=== PATIENT | female | born 1990 | race Caucasian/White ===

== ENCOUNTER 2018-11-01 16:35 | Emergency (ER) | payer OTHER ==
[2018-11-01 16:40] VITALS: BP 136/96; TEMP 99.3; BMI 33.2
== END 2018-11-01 18:02 | disposition left against medical advice (07) ==
LOC: ED 16:35
DX: J02.9 Acute pharyngitis, unspecified (principal)

== ENCOUNTER 2018-11-02 08:37 | Emergency (ER) ==
[2018-11-02 08:44] VITALS: BP 129/84; TEMP 99.6; BMI 33.0
--- NOTE | 2018-11-02 09:01 | ED.PDOC ---
General ED Provider: Dr. TIRSO MCKAY Chief Complaint: Sore Throat Stated Complaint: CC: Sore throat. HPI: Initial onset with sore throat. Also complains of ears aching along with fever/chills/body aches/vomiting/headache, urinary urgency/frequency and flank pain. In addition C/O previouls strep throat. States was here last evening but left as she felt so poorly and did not feel like waiting as ER was full of patients. In addition has taken tylenol and nyquil --feel/somewhat better today but most of symptoms remain/ Time Seen by Physician: 08:40 Mode of Arrival: Walk-In Information Source: Patient Exam Limitations: No limitations Nursing and Triage Documentation Reviewed and Agree: Yes Does patient meet sepsis criteria?: No System Inflammatory Response Syndrome: Not Applicable Sepsis Protocol: For patient's 13 years and over: Temp is 96.8 and below OR 101 and greater Pulse >90 BPM Resp >20/minute Acutely Altered Mental Status Are patient's symptoms suggestive of a new infection, such as: -Pneumonia -Skin, Soft Tissue -Endocarditis -UTI -Bone, Joint Infection -Implantable Device -Acute Abdominal Infection -Wound Infection -Meningitis -Blood Stream Catheter Infection -Unknown Respiratory Complaint Exam - Respiratory Complaint/Exam Symptoms Are: Still present Timing: Constant Initial Severity: Mild Current Severity: Moderate Location: Throat Character: Denies: Productive cough, Non-productive cough, Dry cough, Bronchospastic cough Aggravating: Denies: None Alleviating: Denies: None Associated Signs and Symptoms: Reports: Hoarseness, Sinus discomfort, Vomiting, Sore throat. Denies: Rapid breathing, Dyspnea, Fever, Chills, Chest pain, Pleuritic chest pain, Wheezing, Hemoptysis, Dizziness, Calf pain, Calf swelling , Edema, URI, Nasal congestion, Weight loss, Decreased oral intake, Increased thirst, Increased appetite, Increased urination Related History: Reports: Similar episode Related Surgical History: Reports: None Pulmonary Embolism Risk Factors: None Cardiac Risk Factors: Reports: None Pseudomonas Risk Factors: Reports: None Tuberculosis Risk Factors: Reports: None Status Asthmaticus Risk Factors: Reports: None Home Oxygen Use: No Recent Stress Test: No Recent Echo/LV Function: No Current Antibiotic Use: No Current Asthma Medication Use: No Respiratory Distress: None Inadequate Respiratory Effort: No Dysphagia Present: No Stridor Present: No JVD Present: No Accessory Muscle Use: No Retractions: Not Present Diminished Breath Sounds: No Sinus Tenderness: None Grunting Respirations: No Kussmaul Respirations: No Differential Diagnoses: URI, Other (strep tonsillitis) Review of Systems - Review Of Systems Constitutional: Reports: No symptoms Eyes: Reports: No symptoms Ears, Nose, Mouth, Throat: Reports: No symptoms, Ear pain, Throat pain, Throat swelling Respiratory: Reports: No symptoms Cardiac: Reports: No symptoms GI: Reports: No symptoms : Reports: No symptoms Musculoskeletal: Reports: No symptoms Skin: Reports: No symptoms Neurological: Reports: No symptoms Endocrine: Reports: No symptoms Hematologic/Lymphatic: Reports: No symptoms All Other Systems: Reviewed and Negative Past Medical History - Past Medical History Previously Healthy: Yes Endocrine: Reports: None Cardiovascular: Reports: None Respiratory: Reports: None Hematological: Reports: None Gastrointestinal: Reports: None Genitourinary: Reports: None Neuro/Psych: Reports: None Musculoskeletal: Reports: None Cancer: Reports: None Last Menstrual Period: today - Surgical History General Surgical History: Reports: Unknown - Family History Family History: Reports: Unknown - Social History Smoking Status: Current every day smoker, Light tobacco smoker Hx Substance Use: No Alcohol Screening: Occasionally Physical Exam - Physical Exam Appearance: Well-appearing, Ill-appearing, Well-nourished Ill-appearing: Moderate Pain Distress: Moderate Eyes: GUDELIA, EOMI, Conjunctiva clear ENT: Ears normal, Nose normal, Oropharynx normal, Erythema Neck: Supple Respiratory: Airway patent, Breath sounds clear, Breath sounds equal, Respirations nonlabored Cardiovascular: RRR, Pulses normal, No rub, No murmur GI/: Soft, Nontender, No masses, Bowel sounds normal, No Organomegaly, Tender (bilat flank regions) Musculoskeletal: Normal strength, ROM intact, No edema, No calf tenderness Skin: Warm, Dry, Normal color Neurological: Sensation intact, Motor intact, Reflexes intact, Cranial nerves intact, Alert, Oriented Psychiatric: Affect appropriate, Mood appropriate Critical Care Note - Critical Care Note Total Time (mins): 30 Course - Course Hematology/Chemistry: 11/02/18 09:10 11/02/18 09:10 Orders, Labs, Meds: Lab Review 11/02/18 11/02/18 11/02/18 08:55 09:10 09:10 WBC 10.92 H RBC 4.36 Hgb 13.3 Hct 39.2 MCV 89.9 MCH 30.5 MCHC 33.9 RDW Coeff of Varinder 11.9 Plt Count 181 Immature Gran % (Auto) 0.6 Neut % (Auto) 81.6 Lymph % (Auto) 10.8 Butler % (Auto) 6.0 Eos % (Auto) 0.8 Baso % (Auto) 0.2 Immature Gran # (Auto) 0.1 Neut # (Auto) 8.9 H Lymph # (Auto) 1.2 Butler # (Auto) 0.7 Eos # (Auto) 0.1 Baso # (Auto) 0.0 Sodium 137.0 Potassium 4.06 Chloride 101.7 Carbon Dioxide 25.8 Anion Gap 13.56 BUN 14.5 Creatinine 0.68 Estimated GFR (MDRD) 105.00 BUN/Creatinine Ratio 21.32 Glucose 93.8 Calcium 8.92 Total Bilirubin 0.97 AST 45.4 H ALT 48.9 H Alkaline Phosphatase 62.1 Total Protein 7.61 Albumin 4.50 Globulin 3.11 Albumin/Globulin Ratio 1.44 Urine Color Urine Clarity Urine pH Ur Specific [place] Urine Protein Urine Glucose (UA) Urine Ketones Urine Blood Urine Nitrite Urine Bilirubin Urine Urobilinogen Ur Leukocyte Esterase Urine Microscopic RBC Ur Squamous Epith Cells Urine Test Infectious Butler Assay Influ A Molecular Assay Negative by naat Influ B Molecular Assay Negative by naat 11/02/18 11/02/18 11/02/18 09:10 09:10 09:10 WBC RBC Hgb Hct MCV MCH MCHC RDW Coeff of Varinder Plt Count Immature Gran % (Auto) Neut % (Auto) Lymph % (Auto) Butler % (Auto) Eos % (Auto) Baso % (Auto) Immature Gran # (Auto) Neut # (Auto) Lymph # (Auto) Butler # (Auto) Eos # (Auto) Baso # (Auto) Sodium Potassium Chloride Carbon Dioxide Anion Gap BUN Creatinine Estimated GFR (MDRD) BUN/Creatinine Ratio Glucose Calcium Total Bilirubin AST ALT Alkaline Phosphatase Total Protein Albumin Globulin Albumin/Globulin Ratio Urine Color Yellow Urine Clarity Clear Urine pH 5.5 Ur Specific [place] 1.015 Urine Protein Negative Urine Glucose (UA) Negative Urine Ketones Negative Urine Blood 3+ Urine Nitrite Negative Urine Bilirubin Negative Urine Urobilinogen 0.2 Ur Leukocyte Esterase Negative Urine Microscopic RBC 5-10 Ur Squamous Epith Cells 10-20 Urine Test Negative Infectious Butler Assay Positive Influ A Molecular Assay Influ B Molecular Assay Orders Category Date Time Status CBC W/ AUTO DIFF Stat LAB 11/02/18 09:10 Completed CMP [COMPREHENSIVE METABOLIC PANEL] Stat LAB 11/02/18 09:10 Received FLU A & B MOLECULAR [FLU A/B MOLECULAR] Stat LAB 11/02/18 08:55 Completed MOLECULAR GROUP A STREP Stat LAB 11/02/18 08:55 Completed MONONUCLOSIS SCREEN Stat LAB 11/02/18 09:10 Received UA [URINALYSIS C & S IF INDICATED] Stat LAB 11/02/18 09:10 Completed URINE Stat LAB 11/02/18 09:10 Completed Acetaminophen [Tylenol] MEDS 11/02/18 09:32 Stat 650 mg PO ONCE STA Medications Discontinued Medications Generic Name Dose Route Start Last Admin Trade Name Freq PRN Reason Stop Dose Admin Acetaminophen 650 mg 11/02/18 09:32 Tylenol PO 11/02/18 09:33 ONCE STA Vital Signs: Temp Pulse Resp BP Pulse Ox 11/02/18 08:37 99.6 F 129 H 20 129/84 98 Departure - Departure Time of Disposition: 09:42 Disposition: HOME SELF-CARE Discharge Problem: Acute streptococcal tonsillitis, Infectious mononucleosis, Transaminasemia Instructions: Tonsillitis (ED), Mononucleosis (ED) Condition: Good Pt referred to PMD for follow-up: Yes (Follow up PCP 10 days) IPMP verified?: No Additional Instructions: Stay well hydrated Rest daily, Rinse throat with antiseptic / Wam salt water preparation Avoid oral contact /drinking etc with others until symptoms resolved Take Advil for pain or temperature elevation If condition worsens return to ER. Definite follow up pcp in 7 days or earlier if needed Prescriptions: Amoxicillin 875 mg PO BID #20 tablet Allergies/Adverse Reactions: Allergies No Known Allergies Allergy (Verified 11/02/18 08:45) Home Medications: Ambulatory Orders Amoxicillin 875 mg PO BID #20 tablet 11/02/18 Disposition Discussed With: Patient EENT Complaint Exam - Throat Complaint/Exam Onset/Duration: 2 days Symptoms Are: Worse Timimg: Constant Initial Severity: Moderate Current Severity: Severe Aggravating: Reports: Eating Alleviating: Reports: None Associated Signs and Symptoms: Reports: Dysphagia, Chills, Nasal congestion, Vomiting, Diarrhea Related History: Reports: Similar Episode Uvula Midline: Yes Geeta-tonsillar Fluctuence: Yes Scarlatinaform Rash Present: No Lesions: Absent: Lip, Gums, Tongue, Buccal Mucosa, Pharynx Exanthem: Absent: Lip, Tongue, Buccal Mucosa, Pharynx Vesicles: Absent: Lip, Tongue, Buccal Mucosa, Pharynx Stridor Present: No Sinus Tenderness Present: No Tonsillar Hypertrophy Present: Yes Tonsillar Exudate Present: No Geeta-tonsillar Swelling Present: Yes Adenopathy Present: Yes Splenomegaly Present: No Differential Diagnoses: Mononucleosis, Tonsillitis
[2018-11-02 09:28] LABS: URINE PREGNANCY TEST NEGATIVE (NEGATIVE)
[2018-11-02] MEDS ORDERED: TYLENOL PO STA (09:32)
== END 2018-11-02 10:15 | disposition home or self-care (01) ==
LOC: ED 08:37
DX: J03.00 Acute streptococcal tonsillitis, unspecified (principal); B27.90 Infectious mononucleosis, unspecified without complication; R74.0 Nonspecific elevation of levels of transaminase and lactic acid dehydrogenase [LDH]; F17.210 Nicotine dependence, cigarettes, uncomplicated
CPT/HCPCS: 36415; 80053; 81001; 81025; 85025; 86308; 87502; 87651; 99283